=== PATIENT | male | born 1955 | race Caucasian/White ===

== ENCOUNTER 2018-02-25 18:56 | Emergency (ER) | payer MEDICAID ==
[~2018-02-25] VITALS: Ht 170.2 cm; Wt 82.0 kg
[2018-02-25] MEDS ORDERED: METF850T2 PO (19:25)
[2018-02-25] MEDS ORDERED: LOSA50TA37 PO (19:25)
[2018-02-25] MEDS ORDERED: LISI-660 PO (19:25)
[2018-02-25] MEDS ORDERED: METO25TA6 PO (19:25)
[2018-02-25 19:27] LABS: GLUCOSE,POINT OF CARE 207 MG/DL (70-110)
[2018-02-25] MEDS ORDERED: LEVOFLOXACIN 500 MG TABLET PO ONE (22:15)
[2018-02-25 23:57] VITALS: BP 152/90
== END 2018-02-26 00:12 | disposition home or self-care (01) ==
LOC: EMS 18:58
DX: R33.9 Retention of urine, unspecified (principal); R10.9 Unspecified abdominal pain; E11.9 Type 2 diabetes mellitus without complications; I10 Essential (primary) hypertension
CPT/HCPCS: 51702; 74176; 99284